=== PATIENT | male | born 2000 | race Two or more races ===

== ENCOUNTER 2024-11-15 07:41 | Emergency (ER) | payer SELFPAY ==
[~2024-11-15] VITALS: Ht 177.8 cm; Wt 67.9 kg
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
[2024-11-15 09:01] VITALS: BP 136/92; PULSE 65; RESP 16; TEMP 97.9; O2SAT 100
--- NOTE | 2024-11-15 09:18 | DVH ---
CLINICAL INDICATION: pain post injury TECHNIQUE: XY L TIB FIB XRAY Comparison: None FINDINGS/IMPRESSION: : There is no evidence of acute fracture or dislocation. Soft tissues are unremarkable. Intramedullary pete and gamma nail fixation. Chronic healed fractures of the distal tibia and distal fibula.
--- NOTE | 2024-11-15 09:20 | DVH ---
CLINICAL INFORMATION: 24 years old, Male; pain post injury. TECHNIQUE: 3 views of the left knee were obtained. COMPARISON: None FINDINGS: No acute fracture or dislocation. Postsurgical changes of open reduction internal fixation of the left tibia and partially visualized with intramedullary pete and proximal locking screws. Visua lized portions of the surgical hardware are intact. Vague curvilinear density projecting over the sup rapatellar recess on the lateral view, most likely due to soft tissue density, although not correlate d on additional views. Small joint effusion. IMPRESSION: 1. No evidence of acute fracture. 2. Vague curvilinear density projecting over the suprapatellar recess on the lateral view, most likel y due to soft tissue density, although not correlated on additional views. 3. Small joint effusion. If there is concern for internal derangement, MRI could be obtained.
[2024-11-15] MEDS ORDERED: NAPR5TAB4 PO (09:38)
== END 2024-11-15 09:42 | disposition home or self-care (01) ==
LOC: ER 07:41
DX: M79.662 Pain in left lower leg (principal); M25.562 Pain in left knee
CPT/HCPCS: 73562; 73590